=== PATIENT | female | born 1980 | race Two or more races ===

== ENCOUNTER 2022-10-04 22:43 | Emergency (ER) | payer BC ==
[2022-10-04 23:01] VITALS: BP 125/78; PULSE 80; RESP 16; TEMP 98.8; BMI 23.6
[2022-10-04] MEDS ORDERED: SODIUM CHLORIDE 1,000 ML IV STA (23:21)
[2022-10-04 23:43] LABS: HEMATOCRIT 34.3 % (32.4-45.2); HEMOGLOBIN 11.7 G/dL (10.7-15.3); MCH 30.4 pg (25.7-33.7); MEAN CELL VOLUME 89.3 fl (80-96); MEAN PLT VOLUME 10.9 fl (7.5-11.1); PLATELET COUNT 112.4 10^3/uL (134-434); RBC 3.84 10^6/uL (3.60-5.2); RDW 14.3 % (11.6-15.6); WHITE BLOOD COUNT 6.6 10^3/uL (4.0-10.8)
[2022-10-05 00:03] LABS: PLATELET ESTIMATE SLT DECREASE
[2022-10-05 00:06] LABS: ALBUMIN 3.8 g/dl (3.4-5.0); BILIRUBIN,TOTAL 0.5 mg/dl (0.2-1); CALCIUM 9.3 mg/dl (8.5-10); CREATININE 0.8 mg/dl (0.55-1.3)
[2022-10-05 01:02] LABS: PH,URINE 7.5 (5.0-8.0); URINE APPEARANCE CLEAR; URINE BILIRUBIN NEGATIVE (NEGATIVE); URINE COLOR YELLOW; URINE GLUCOSE (UA) NEGATIVE (NEGATIVE); URINE KETONE NEGATIVE (NEGATIVE); URINE LEUK ESTERASE NEGATIVE (NEGATIVE); URINE NITRITE NEGATIVE (NEGATIVE); URINE PROTEIN NEGATIVE (NEGATIVE); URINE UROBILINOGEN 0.2 mg/dL (0.2-1.0)
[2022-10-05 01:19] LABS: HCG,QUALITATIVE URINE NEGATIVE
== END 2022-10-05 01:29 | disposition home or self-care (01) ==
LOC: FER 22:43
PROC: 3E0337Z Introduction of Electrolytic and Water Balance Substance into Peripheral Vein, Percutaneous Approach (ICD-10-PCS; principal; 2022-10-04)
DX: R42 Dizziness and giddiness (principal)
CPT/HCPCS: 36415; 80053; 81003; 84703; 85025; 99284-25